=== PATIENT | female | born 1960 | race African-American/Black ===

== ENCOUNTER 2022-11-06 21:10 | Emergency (ER) | payer BC ==
[2022-11-06] MEDS ORDERED: ONDANSETRON 4 MG/2 ML VIAL ONE (21:46)
[2022-11-06] MEDS ORDERED: MORPHINE 4 MG/ML SYR ONE (21:46)
[2022-11-06 21:47] LABS: Specific Gravity 1.017 (1.005-1.030); Urine Bacteria None Seen /HPF (<20); Urine Bilirubin NEGATIVE (Negative); Urine Blood Negative (Negative); Urine Clarity Clear (Clear); Urine Color Light-Yellow (Yellow); Urine Glucose NEGATIVE (Negative); Urine Protein NEGATIVE (Negative); Urine RBC <5 /HPF (None Seen); Urine Urobilinogen Normal (Normal); Urine pH 6.5 (5.0-7.0)
[2022-11-06 21:49] LABS: Absolute Lymphocytes (CBC) 3.5 K/uL (0.7-4.9); Hematocrit 37.8 % (36.0-45.0); Lymphocytes % 43.7 % (15.3-44.8); MCV 75.2 fL (80-100); MPV 7.2 fL (7.6-11.3); RBC Red Blood Cell Count 5.03 M/uL (3.86-4.86)
[2022-11-06 22:05] LABS: Albumin 4.2 g/dL (3.4-5.0); Bilirubin Total 0.4 mg/dL (0.2-1.0); Potassium 3.3 mEq/L (3.5-5.1); Protein, Total 8.6 g/dL (6.4-8.2)
--- NOTE | 2022-11-06 22:48 | RAD REPORT ---
EXAM DESCRIPTION: CT - Abdomen Pelvis W Contrast - 11/06/2022 10:30 pm CLINICAL HISTORY: ABD PAIN COMPARISON: No comparisons TECHNIQUE: Thin cut axial CT imaging of the abdomen and pelvis was performed following intravenous a dministration of 95 mL Isovue 300. Multiplanar reformats were generated and reviewed. All CT scans are performed using dose optimization technique as appropriate and may include automated exposure control or mA/KV adjustment according to patient size. FINDINGS: No suspicious findings in the lung bases. The liver, spleen, and pancreas show no suspicious findings. Gallbladder and biliary tree are also wi thout suspicious finding. Calcific density at the left lower pole, probably relates to parenchymal calcification, although ther e may be an adjacent nonobstructing left lower pole calculus. Motion artifact limits evaluation. No o therwise symmetric renal function is seen with no hydronephrosis or suspicious renal mass. No dilated bowel loops or bowel wall thickening. No free air, free fluid or inflammatory stranding. N o hernia, mass or bulky lymphadenopathy. The urinary bladder is without significant finding. Soft tissue fullness in the region of the introitus, not well evaluated. The uterus is not visualized . No suspicious bony findings. IMPRESSION: No acute intra-abdominal process. Uterus is not visualized. Nonspecific soft tissue fullness in the region of the introitus. Please cor relate with history of prior hysterectomy, versus uterine prolapse.
--- NOTE | 2022-11-06 23:04 | ER ---
Nurse's Notes [facility] Name: Karli Salguero Age: 62 yrs Sex: Female : 1960 Arrival Date: 11/06/2022 Time: 21:10 Bed 15 Private MD: Diagnosis: Vaginal prolapse Presentation: 11/06 21:26 Chief complaint: Patient states: I was in the shower this evening and i felt like kd3 something had dropped down into my vagina. It is causing me to be nauseous. I am not sure what is causing in. I have been having some lower abdominal pain on and off today that radiated into my back. Coronavirus screen:. Ebola Screen: No symptoms or risks identified at this time. Initial Sepsis Screen: Does the patient meet any 2 criteria? No. Patient's initial sepsis screen is negative. Does the patient have a suspected source of infection? No. Patient's initial sepsis screen is negative. Risk Assessment: Do you want to hurt yourself or someone else? Patient reports no desire to harm self or others. Onset of symptoms was November 06, 2022. 21:26 Method Of Arrival: Ambulatory kd3 21:26 Acuity: CHAVA 3 kd3 Triage Assessment: 21:26 General: Appears in no apparent distress. Behavior is calm, cooperative. Pain: kd3 Complains of pain in right lower quadrant and left lower quadrant. GI: Reports nausea. 21:26 : at vaginal opening cervix. kd3 Historical: - Allergies: 21:33 No Known Allergies; ha1 - PMHx: 21:33 Hypertensive disorder; ha1 - Immunization history:: Adult Immunizations up to date. - Social history:: Smoking status: unknown. - Family history:: not pertinent. Screenin:36 Abuse screen: Denies threats or abuse. Denies injuries from another. Nutritional ha1 screening: No deficits noted. Tuberculosis screening: No symptoms or risk factors identified. 21:[address] [facility] ED Fall Risk Assessment (Adult) History of falling in the last 3 months, ha1 including since admission No falls in past 3 months (0 pts) Confusion or Disorientation No (0 pts) Intoxicated or Sedated No (0 pts) Impaired Gait No (0 pts) Mobility Assist Device Used No (0 pt) Altered Elimination No (0 pt) Score/Fall Risk Level 0 - 2 = Low Risk Oriented to surroundings, Maintained a safe environment, Hourly rounding (assess needs \\T\\ fall precautionary measures) done. Assessment: 21:30 General: Appears uncomfortable, Behavior is calm, cooperative. Pain: Complains of pain ha1 in abdomen Pain does not radiate. Neuro: Level of Consciousness is awake, alert, obeys commands, Oriented to person, place, time, situation. Cardiovascular: Patient's skin is warm and dry. Respiratory: Airway is patent Respiratory effort is even, unlabored, Respiratory pattern is regular, symmetrical. GI: Abdomen is non-distended, obese, Bowel sounds present X 4 quads. Reports nausea. : Reports cramping, lower quadrant(s) pt. states " something is coming out of my vagina". Derm: Skin is intact, Skin is moist, Skin is normal. Musculoskeletal: Circulation, motion, and sensation intact. Range of motion: intact in all extremities. 22:00 Reassessment: Patient and/or family updated on plan of care and expected duration. Pain ha1 level reassessed. Patient is alert, oriented x 3, equal unlabored respirations, skin warm/dry/pink. 23:00 Reassessment: Patient and/or family updated on plan of care and expected duration. Pain ha1 level reassessed. Patient is alert, oriented x 3, equal unlabored respirations, skin warm/dry/pink. Vital Signs: 21:26 Temp 97.9; kd3 21:29 BP 154 / 79; Pulse 67; Resp 16 S; Temp 97.9; Pulse Ox 97% on R/A; Weight 77.56 kg; ha1 Height 5 ft. 1 in. ; 22:00 BP 150 / 88; Pulse 60; Resp 16 S; Pulse Ox 98% on R/A; ha1 23:00 BP 134 / 82; Pulse 70; Resp 16 S; Pulse Ox 97% on R/A; ha1 21:29 Body Mass Index 32.31 (77.56 kg, 154.94 cm) 1 ED Course: 21:16 Patient arrived in ED. ja2 21:16 Rey Burnett MD is Attending Physician. rt 21:19 Patient has correct armband on for positive identification. Bed in low position. Call 1 light in reach. Side rails up X 1. Adult w/ patient. 21:26 Arm band placed on right wrist. kd3 21:28 Triage completed. kd3 21:29 Nidhi Hawk, RN is Primary Nurse. ha1 21:35 Inserted saline lock: 22 gauge in right antecubital area, using aseptic technique. pf1 Blood collected. 21:41 CMP Sent. pf1 21:41 CBC with Diff Sent. pf1 21:41 UAM Sent. pf1 22:32 CT Abd/Pelvis - IV Contrast Only In Process Unspecified. EDMS 23:28 No provider procedures requiring assistance completed. IV discontinued, intact, ha1 bleeding controlled, No redness/swelling at site. Pressure dressing applied. Administered Medications: 21:42 Drug: Ondansetron IVP 4 mg Route: IVP; Site: right antecubital; ha1 22:00 Follow up: Response: No adverse reaction; Nausea is decreased ha1 21:45 Drug: morphine IVP or IV 2 mg Route: IVP; Infused Over: 4 mins; Site: right antecubital;ha1 22:00 Follow up: Response: No adverse reaction; Pain is decreased; RASS: Alert and Calm (0) ha1 Medication: 23:28 VIS not applicable for this client. ha1 Outcome: 23:03 Discharge ordered by . rt 23:28 Discharged to home ambulatory, with family. ha1 23:28 Condition: stable 23:28 Discharge instructions given to patient, family, Instructed on discharge instructions, follow up and referral plans. Demonstrated understanding of instructions, follow-up care. 23:29 Patient left the ED. ha1 Signatures: Dispatcher [employer] EDMS Felicitas Lam 2 Wnedy Stephen RN RN kd3 Nidhi Hawk RN RN ha1 Rey Burnett MD MD rt Elyssa Marcus RN RN pf1 Corrections: (The following items were deleted from the chart) 21:35 21:33 PSHx: None; ha1 ha1
--- NOTE | 2022-11-06 23:04 | EDPHYS ---
Physician Documentation [facility] Name: Karli Salguero Age: 62 yrs Sex: Female : 1960 Arrival Date: 11/06/2022 Time: 21:10 Bed 15 Private MD: ED Physician Rey Burnett HPI: 11/06 21:39 This 62 yrs old Black Female presents to ER via Ambulatory with complaints of Nausea, rt Prolapse Cervix. 21:39 Patient presents to the ED with nausea, lower abdominal pain, report of her prolapse, rt stating that felt that something fell out of her vagina started today. She is never had similar symptoms previously. She has had a hysterectomy in the past. She denies other acute complaints at this time. Symptoms are moderate severity, nonradiating, no other aggravating alleviating factors.. Historical: - Allergies: 21:33 No Known Allergies; ha1 - PMHx: 21:33 Hypertensive disorder; ha1 - Immunization history:: Adult Immunizations up to date. - Social history:: Smoking status: unknown. - Family history:: not pertinent. ROS: 21:39 Constitutional: Negative for fever, chills, and weight loss, Cardiovascular: Negative rt for chest pain, palpitations, and edema, Respiratory: Negative for shortness of breath, cough, wheezing, and pleuritic chest pain, MS/Extremity: Negative for injury and deformity, Skin: Negative for injury, rash, and discoloration, Neuro: Negative for headache, weakness, numbness, tingling, and seizure, Psych: Negative for depression, anxiety, suicide ideation, homicidal ideation, and hallucinations. 21:39 Abdomen/GI: Positive for abdominal pain, nausea. 21:39 : Positive for Prolapse, negative for dysuria. Exam: 21:39 Constitutional: This is a well developed, well nourished patient who is awake, alert, rt and in no acute distress. Head/Face: Normocephalic, atraumatic. Chest/axilla: Normal chest wall appearance and motion. Nontender with no deformity. No lesions are appreciated. Cardiovascular: Regular rate and rhythm with a normal S1 and S2. No gallops, murmurs, or rubs. Normal PMI, no JVD. No pulse deficits. Respiratory: Lungs have equal breath sounds bilaterally, clear to auscultation and percussion. No rales, rhonchi or wheezes noted. No increased work of breathing, no retractions or nasal flaring. Abdomen/GI: Soft, non-tender, with normal bowel sounds. No distension or tympany. No guarding or rebound. No evidence of tenderness throughout. Skin: Warm, dry with normal turgor. Normal color with no rashes, no lesions, and no evidence of cellulitis. MS/ Extremity: Pulses equal, no cyanosis. Neurovascular intact. Full, normal range of motion. Neuro: Awake and alert, GCS 15, oriented to person, place, time, and situation. Cranial nerves II-XII grossly intact. Motor strength 5/5 in all extremities. Sensory grossly intact. Cerebellar exam normal. Normal gait. Psych: Awake, alert, with orientation to person, place and time. Behavior, mood, and affect are within normal limits. 21:39 : Mild vaginal prolapse noted, external genitalia otherwise normal. Vital Signs: 21:26 Temp 97.9; kd3 21:29 BP 154 / 79; Pulse 67; Resp 16 S; Temp 97.9; Pulse Ox 97% on R/A; Weight 77.56 kg; ha1 Height 5 ft. 1 in. ; 22:00 BP 150 / 88; Pulse 60; Resp 16 S; Pulse Ox 98% on R/A; ha1 23:00 BP 134 / 82; Pulse 70; Resp 16 S; Pulse Ox 97% on R/A; ha1 21:29 Body Mass Index 32.31 (77.56 kg, 154.94 cm) ha1 Procedures: 23:04 Performed Vaginal prolapse reduction. Vaginal prolapse was easily reduced with digital rt pressure, no complications, patient tolerated well. MDM: 21:21 Patient medically screened. rt 23:04 Differential diagnosis: Vaginal, cervical, uterine prolapse, UTI, diverticulitis. Data rt reviewed: vital signs, nurses notes, lab test result(s), radiologic studies. Independent interpretation of the following test(s) in the Emergency Department CT Scan: My interpretation is No obstruction seen on interpretation of the CT scan images. Counseling: I had a detailed discussion with the patient and/or guardian regarding: the historical points, exam findings, and any diagnostic results supporting the discharge/admit diagnosis, lab results, radiology results, the need for outpatient follow up. 11/06 21:29 Order name: CBC with Diff; Complete Time: 22:07 rt 11/06 21:29 Order name: CMP; Complete Time: 22:07 rt 11/06 21:29 Order name: UAM; Complete Time: 22:07 rt 11/06 21:29 Order name: CT Abd/Pelvis - IV Contrast Only; Complete Time: 22:54 rt Administered Medications: 21:42 Drug: Ondansetron IVP 4 mg Route: IVP; Site: right antecubital; ha1 22:00 Follow up: Response: No adverse reaction; Nausea is decreased ha1 21:45 Drug: morphine IVP or IV 2 mg Route: IVP; Infused Over: 4 mins; Site: right antecubital;ha1 22:00 Follow up: Response: No adverse reaction; Pain is decreased; RASS: Alert and Calm (0) ha1 Disposition Summary: 11/06/22 23:03 Discharge Ordered Location: Home rt Problem: new rt Symptoms: are resolved rt Condition: Stable rt Diagnosis - Vaginal prolapse rt Followup: rt - With: Private Physician - When: 2 - 3 days - Reason: Discharge Instructions: - Discharge Summary Sheet rt - Pelvic Organ Prolapse rt Forms: - Medication Reconciliation Form rt - Thank You Letter rt - Antibiotic Education rt - Prescription Opioid Use rt Signatures: Dispatcher [employer] Wendy Palma RN RN kd3 Nidhi Hawk RN RN ha1 Rey Burnett MD MD rt Corrections: (The following items were deleted from the chart) 21:35 21:33 PSHx: None; ha1 ha1
[2022-11-06 23:51] VITALS: TEMP 97.9
[2022-11-06 23:59] VITALS: BP 134/82; O2SAT 97
== END 2022-11-06 23:29 | disposition home or self-care (01) ==
LOC: ER 21:10
DX: N81.10 Cystocele, unspecified (principal); R11.0 Nausea; I10 Essential (primary) hypertension
CPT/HCPCS: 85025; 81001; 36415; 80053; 74177; 96375; 96374; 99284; Q9967; J2405